=== PATIENT | female | born 1945 | race Caucasian/White ===

== ENCOUNTER 2024-09-20 09:40 | Outpatient (CLI) | payer MEDICARE, SELFPAY ==
--- NOTE | 2024-09-20 10:15 | CRLHL7_ITS ---
For Patients: As a result of the Century Cures Act, medical imaging exams and procedure reports are released immediately into your electronic medical record. You may view this report before your referring provider. If you have questions, please contact your health care provider. INDICATION: Dysphagia TECHNIQUE: Modified barium swallow. Fluoroscopic time 1 minute 39 seconds COMPARISON: None FINDINGS/IMPRESSION: Anatomical structures are normal. Swallowing mechanism appears within normal limits. No episodes of penetration or aspiration. No significant findings. Dictated by Lito Toney MD @ 09/20/2024 11:19:37 AM (Electronically Signed)
== END 2024-09-20 09:41 | disposition home or self-care (01) ==
LOC: RAD 09:41
PROVIDERS: PCP Family Medicine; Visit Provider Family Medicine
DX: R13.10 Dysphagia, unspecified (principal)
CPT/HCPCS: 74230; 92611

== ENCOUNTER 2025-03-12 19:41 | Emergency (ER) | payer MEDICARE, SELFPAY ==
--- OUTSIDE RECORDS SUMMARY | 2025-03-12 19:44 | XMS_ITS | Clinical Summary ---
Author Organization [facility] Address [address] [place] [address] Care Team Providers Care Rn Ortho Name Role Phone Muriel Abel Primary Care Provider [phone] Allergies Active Allergy Reactions Criticality Noted Date Comments Amoxicillin-Pot Clavulanate Rash 12/04/19 25 Medications ASPIRIN 81 MG TAB, DELAYED RELEASE take 1 tablet (81 mg) by oral route once daily 0 12/30/19 08 Active FISH OIL 1,200 MG-144 MG-216 MG CAP one tablet daily 0 04/18/20 08 Active ergocalciferol (VITAMIN D) 400 unit capsule Take 400 Units by mouth once daily. 0 07/11/20 10 Active azelastine 137 mcg/actuation (ASTELIN) nasal sprayIndications: Allergic rhinitis, unspecified seasonality, unspecified trigger Inhale 1 Meeker into affected nostril(s) 2 times daily. 30 mL 6 01/27/20 22 Active albuterol HFA (PRO-AIR; VENTOLIN; PROVENTIL) 90 mcg/actuation inhalerIndication s:STORM (dyspnea on exertion) Inhale 1-2 Puffs by mouth every 4 hours if needed for Shortness Of Breath. 1 Each 3 02/27/20 23 Active inhalational spacing deviceIndications :STORM (dyspnea on exertion) For home use. 1 Each 02/27/20 23 Active fluticasone (50 mcg per actuation) nasal solution (FLONASE)Indicati ons:Rhinitis, unspecified type Inhale 1 Meeker to both nostrils two times daily. 16 g 02/29/20 24 Active mometasone (Asmanex HFA) 100 mcg/actuation HFAAIndications:O bstructive lung disease (HC) INHALE 1 PUFF BY MOUTH TWICE DAILY 13 g 3 12/08/19 25 Active famotidine 20 mg tabletIndications :Gastroesophageal reflux disease, unspecified whether esophagitis present Take 1 Tablet (20 mg) by mouth two times daily. 180 Tablet 1 03/06/20 25 Active hydroCHLOROthiazi de 25 mg tabletIndications :Primary hypertension Take 1 Tablet (25 mg) by mouth once daily. 90 Tablet 3 03/06/20 25 Active hydrocortisone 2.5 % rectal creamIndications: Hemorrhoids, external Apply topically to affected area(s) three times daily. 28 g 03/06/20 25 Active lisinopriL 20 mg tabletIndications :Primary hypertension,Stag e 3b chronic kidney disease (HC) Take 1 Tablet (20 mg) by mouth once daily. 90 Tablet 3 03/06/20 25 Active montelukast 10 mg tabletIndications :Rhinitis, unspecified type,SOB (shortness of breath) Take 1 Tablet (10 mg) by mouth at bedtime. 90 Tablet 3 03/06/20 25 Active atorvastatin 80 mg tabletIndications :Hyperlipidemia, unspecified hyperlipidemia type Take 1 Tablet (80 mg) by mouth at bedtime. 90 Tablet 3 03/09/20 25 Active cyclobenzaprine 10 mg tabletIndications :Hip pain, left,Left leg pain Take 1 Tablet (10 mg) by mouth 3 times daily if needed for Muscle Spasm. 20 Tablet 03/11/20 25 Active predniSONE 20 mg tabletIndications :Hip pain, left,Left leg pain Take 1 Tablet (20 mg) by mouth once daily with a meal for 5 days. 5 Tablet 03/11/20 25 2024 Active diclofenac 75 mg delayed-release tabletIndications :Hip pain, left,Left leg pain Take 1 Tablet (75 mg) by mouth two times daily with meals. 20 Tablet 03/11/20 25 Active hydrocortisone (ANUSOL-HC) 2.5 % rectal creamIndications: Hemorrhoids, external Apply topically to affected area(s) 3 times daily. 28 g 01/10/20 21 2024 Discontinued(R eorder (E-cancel not sent)) famotidine (PEPCID) 20 mg tabletIndications :Gastroesophageal reflux disease, unspecified whether esophagitis present Take 1 Tablet (20 mg) by mouth two times daily. 180 Tablet 3 02/29/20 24 2024 Discontinued atorvastatin (LIPITOR) 40 mg tabletIndications :Hyperlipidemia, unspecified hyperlipidemia type Take 1 Tablet (40 mg) by mouth at bedtime. 90 Tablet 3 02/29/20 24 2024 Discontinued hydroCHLOROthiazi de 25 mg tabletIndications :Primary hypertension Take 1 Tablet (25 mg) by mouth once daily. 90 Tablet 3 02/29/20 24 2024 Discontinued(R eorder (E-cancel not sent)) lisinopriL (PRINIVIL; ZESTRIL) 20 mg tabletIndications :Primary hypertension,Stag e 3b chronic kidney disease (HC) Take 1 Tablet (20 mg) by mouth once daily. (New dose - replaces previous 40mg tab) 90 Tablet 3 02/29/20 24 2024 Discontinued montelukast (SINGULAIR) 10 mg tabletIndications :Rhinitis, unspecified type,SOB (shortness of breath) Take 1 Tablet (10 mg) by mouth at bedtime. 90 Tablet 3 02/29/20 24 2024 Discontinued(R eorder (E-cancel not sent)) lisinopriL 20 mg tabletIndications :Primary hypertension,Stag e 3b chronic kidney disease (HC) Take 1 tablet by mouth once daily 30 Tablet 02/15/20 25 2024 Discontinued(R eorder (E-cancel not sent)) famotidine 20 mg tabletIndications :Gastroesophageal reflux disease, unspecified whether esophagitis present Take 1 tablet by mouth twice daily 180 Tablet 1 02/18/20 25 2024 Discontinued(R eorder (E-cancel not sent)) atorvastatin 40 mg tabletIndications :Hyperlipidemia, unspecified hyperlipidemia type TAKE 1 TABLET BY MOUTH AT BEDTIME 30 Tablet 02/24/20 25 2024 Discontinued(R eorder (E-cancel not sent)) atorvastatin 40 mg tabletIndications :Hyperlipidemia, unspecified hyperlipidemia type Take 1 Tablet (40 mg) by mouth at bedtime. 90 Tablet 3 03/06/20 25 2024 Discontinued(* Medication adjustment) Active Problems Problem Noted Date Diagnosed Date Obstructive lung disease 02/29/2024 Skin cancer 02/29/2024 Overview (02/29/2024): History of skin cancer (unsure type) to face Follows with Dermatology Q4 months Osteopenia of multiple sites 10/07/2017 Overview (02/23/2022): DEXA 2020 Abdominal pain, generalized 01/18/2017 Class 1 obesity due to exces s calories without serious comorbidity with body mass index (BMI) of 31.0 to 31.9 in adult 01/08/2017 Renal mass, right 11/30/2016 Other and unspecified hyperlipidemia 12/30/2007 Unspecified essential hypertension 12/30/2007 healthcare maintenance 12/30/2007 Overview (10/07/2017): Colonoscopy - 2001 in [place] - benign polyp - no record in paper chart Colonoscopy 11/2016 few diverticuli repeat in 10 years Last Mammo 02/15/09 01/04/08 ACR 1 Negative Resolved Problems Problem Noted Date Diagnosed Date Resolved Date Severe obesity (BMI 35.0-39. 9) with comorbidity 02/26/2023 02/29/2024 Depression, recurrent 02/23/20222023 Encounters Date Type Department Care Team Description 03/11/2025 1:35 PM CDT Ancillary Procedure [facility] [address] [place] [address] Arrived 03/11/2025 1:30 PM CDT Ancillary Procedure [facility] [address] [facility] [place] [address] Arrived 03/11/2025 12:55 PM CDT [facility] [address] [facility] [place] [address] Shankar Martines NP Leg Pain/problem (left leg pain for about 2 weeks) 03/11/2025 Travel 03/06/2025 8:05 AM CDT Office Visit [facility] [address] [facility] [place] [address] Muriel Abel DO Medicare ANNUAL (subsequent) Visit (79 Year Old); Knee Pain/problem (Left hip to Knee mainly knee, x1 week ) 03/06/2025 7:40 AM CDT Ancillary Procedure [facility] [address] [place] [address] 03/06/2025 Travel 02/22/2025 Refill [facility] [address] [place] [address] Shaqra, Muriel Rayna, DO Refill Request (Atorvastatin) 02/16/2025 Refill [facility] [address] [place] [address] Shaqra, Muriel Rayna, DO Refill Request (Famotidine) 02/13/2025 Refill [facility] [address] [place] [address] Shaqra, Muriel Rayna, DO Refill Request (Lisinopril) 01/25/2025 2:00 PM CDT Ancillary Procedure [facility] [address] [place] [address] 01/25/2025 Travel from Last 3 Months Immunizations Immunization Administration Dates Next Due COVID-19 vaccine (Effective Measure 30mcg/0.3mL) CHAD MEHTA 12/28/2020 Influenza RIV4 (Age 18+ Year s) PRESERV FREE 08/15/2020 Influenza, High-dose Inactivated 06/19/2024 Influenza, High-dose Quadriv alent Inactivated 08/02/2023,08/17/2022,08/11/2021 Influenza, IIV3 (Age 6-35 mos) 08/14/2011 Influenza, IIV3 (Age >=3 years) 09/01/20 13,08/26/2012,08/14/2011,08/01,12/30/2007 Influenza, IIV4 10/07/2017 Influenza, Inactivated IIV3 (Age 65+ Years) Preserv Free 10/21/2018 Pneumococcal Conj 20-valent (Prevnar 20) 06/19/2024 Pneumococcal Poly,23-Valent (Pneumovax) 09/24/2016,02/15/2009 Pneumococcal conj 13-Valent (Prevnar 13) 09/12/2015 RSV, Recombinant ADJ Reconst ituted (Arexvy 120MCG/0.5mL) 06/19/2024 Td (Age >=7 Years) 11/26/2006 Tdap 12/31/2016,11/26/2006 Zoster (Shingrix-RZV, recombinant) 08/02/2023, Zoster (Zostavax-ZVL, live) 12/30/2007 Family History Medical History Relation Name Comments Arrhythmia Brother 1 Stroke Brother 2 Heart Disease Father in his 70's Stroke Mother Cancer-ovarian Sister Cancer-breast No Family History Relation Name Status Comments Brother 1 Brother 2 Other Father Mother Alive Sister Social History Tobacco Use Types Packs/Day Years Used Date Smoking Tobacco: Never Smokeless Tobacco: Never Tobacco Cessation:Counseling Given: Yes Alcohol Use Standard Drinks/Week Comments Yes 0 (1 standard drink = 0.6 oz pur e alcohol) very seldom PHQ-2 Answer Date Recorded PHQ-2 TOTAL SCORE 0 03/06/2025 Social Connections Answer Date Recorded Do you often feel lonely or isolated from those around you? 0 03/06/2025 Financial Resource Strain Answer Date R ecorded Difficulty of Paying Living Expenses 3 03/06/2025 Difficulty of Paying Living Expenses Not on file 03/06/2025 Food Insecurity Answer Date Recorded Do you worry your food will run out before you are able to buy more? 1 03/06/2025 Transportation Needs Answer Date Record ed Does lack of transportation keep you from medica l appointments? 1 03/06/2025 Does lack of transportation keep you from work, meetings or getting things that you need? 1 03/06/2025 Housing Stability Answer Date Recorded What is your housing situation today? 1 03/06/2025 Utilities Answer Date Recorded Do you have trouble paying f or utilities (for example, heat, electricity, water, phone)? 1 03/06/2025 Comments No Sex and Gender Information Value Date Recorded Sex Assigned at Not on file Legal Sex Female 5:26 AM [employer] Gender Identity Not on file Sexual Orientation Not on file Occupation Industry Job Start Date Job End Date Not on file Not on file Not on file Not on file Obstetrics History Para Term AB IAB SAB Ectopic Multiple Livin g Live Births 3 3 3 0 0 0 0 0 3 Date Outcome GA Total Labor Labor/2nd/3rd Weight Sex Type Anes PTL Rayna A1 A5 Name Clin Term Term Term Last Filed Vital Signs Vital Sign Reading Time Taken Comments Blood Pressure 116/64 03/11/2025 1:00 PM CDT Pulse 77 03/11/2025 1:00 PM CDT Temperature 36.7 C (98.1 F) 03/11/2025 1:00 PM CDT Respiratory Rate 18 03/11/2025 1:00 PM CDT Oxygen Saturation 98% 03/11/2025 1:00 PM CDT Inhaled Oxygen Concentration - - Weight 86 kg (189 lb 11.2 oz) 03/11/2025 1:00 PM CDT Height 161.1 cm (5' 3.43) 03/06/2025 8:08 AM CD T Body Mass Index 33.16 03/06/2025 8:08 AM CDT Plan of Treatment Health Maintenance Due Date Last Done Comments COVID-19 vaccine series () 07/09/2024 08/17/2022, 08/11/2021, 01/18/2021, Additional history exists BMI (ht and wt on same day) for age 18+ 03/06/2026 03/06/2025, 02/29/2024, 02/26/2023, Additional history exists Depression screening for age 12+ 03/06/2026 03/06/2025, 03/01/2024, 02/29/2024, Additional history exists Medicare Wellness for age 65+ 03/07/2026, 02/29/2024, 02/26/2023, Additional history exists Tetanus booster 12/31/2026 12/31/2016, 11/08, 11/26/2006 Tdap Completed 12/31/2016, 11/26/2006 Hepatitis C screening for ag e 18-79 Completed 10/21/2018 DEXA/DXA scan for age 65+ Completed 02/18/2021, 12/2014 Zoster (shingles) series for age 50+ Completed 08/02/2023, 08/11/2021, 12/30/2007 Influenza Vaccine Completed 06/19/2024, , 10/21/2018, Additional history exists Pneumococcal series for age 50+ Completed 06/19/2024, 09/24/2016, 09/12/2015, Additional history exists RSV vaccine for adults or Completed 06/19/2024 Procedures Procedure Name Priority Date/Time Associated Diagnosis Comments XR HIP 1 VIEW W PELVIS LEFT STAT 03/11/2025 1:42 PM CDT Hip pain, left XR TIBIA AND FIBULA 2 VIEWS LEFT STAT 03/11/2025 1:42 PM CDT Left leg pain BASIC METABOLIC PANEL Routine 03/06/2025 8:54 AM CDT Primary hypertension LIPID PANEL W REFLEX MEASURED LDL Routine 03/06/2025 8:54 AM CDT Hyperlipidemia, unspecified hyperlipidemia type XR MAMMO DEYSI BILAT SCREEN Routine 03/06/2025 7:50 AM CDT Screening mammogram for breast cancer MR ABDOMEN RENAL WWO Routine 01/25/2025 2:54 PM CDT Other specified disorders of kidney and ureter XR DXA BONE DENSITY 2 SITES AXIAL Routine 02/18/2021 11:43 AM CDT Other specified disorders of bone density and structure, other site ANTI HCV Routine 10/21/2018 10:34 AM [employer] Need for hepatitis C screening test from Last 3 Months or Most Recently Relevant to Health Maintenance Results * XR HIP 1 VIEW W PELVIS LEFT (03/11/2025 1:42 PM CDT) Anatomical Region Laterality Modality HIPS, HIPL, Pelvis Digital Radio graphy 03/11/2025 1:42 PM CDT Impressions 03/11/2025 1:50 PM CDT Mild osteoarthritis left hip with asymmetric joint space narrowing and marginal spurring. No pelvis or left hip fracture. Moderate osteoarthritis right hip. Degenerative change lower lumbar spine. Narrative 03/11/2025 1:50 PM CDT For Patients: As a result of the Century Cures Act, medical imaging exams and procedure reports are released immediately into your electronic medical record. You may view this report before your referring provider. If you have questions, please contact your health care provider. EXAM: XR HIP 1 VIEW W PELVIS LEFT LOCATION: DATE: 03/11/2025 INDICATION: Left hip pain. COMPARISON: None. Procedure Note Edy Lanza MD - 03/11/2025 For Patients: As a result of the s , medical imagingexams and procedure reports are released immediately into your electronicmedical record. You may view this report before your referring provider.If you have questions, please contact your health care provider. EXAM: XR HIP 1 VIEW W PELVIS LEFT LOCATION: DATE: 03/11/2025 INDICATION: Left hip pain. COMPARISON: None. IMPRESSION: Mild osteoarthritis left hip with asymmetric joint space narrowing andmarginal spurring. No pelvis or left hip fracture. Moderate osteoarthritisright hip. Degenerative change lower lumbar spine. us Miteku Daiana Martines [employer] Final Result * XR TIBIA AND FIBULA 2 VIEWS LEFT (03/11/2025 1:42 PM CDT) Anatomical Region Laterality Modality Tibia Digital Radiogra phy 03/11/2025 1:42 PM CDT Impressions 03/11/2025 1:49 PM CDT Normal tibia and fibula. No fracture, no focal lytic lesion. Narrative 03/11/2025 1:49 PM CDT For Patients: As a result of the s , medical imaging exams and procedure reports are released immediately into your electronic medical record. You may view this report before your referring provider. If you have questions, please contact your health care provider. EXAM: XR TIBIA AND FIBULA 2 VIEWS LEFT LOCATION: DATE: 03/11/2025 INDICATION: Left lower leg pain. COMPARISON: None. Procedure Note Edy Lanza MD - 03/11/2025 For Patients: As a result of the s , medical imagingexams and procedure reports are released immediately into your electronicmedical record. You may view this report before your referring provider.If you have questions, please contact your health care provider. EXAM: XR TIBIA AND FIBULA 2 VIEWS LEFT LOCATION: [place] DATE: 03/11/2025 INDICATION: Left lower leg pain. COMPARISON: None. IMPRESSION: Normal tibia and fibula. No fracture, no focal lytic lesion. us Shankar Martines [employer] Final Result * (ABNORMAL) LIPID PANEL W REFLEX MEASURED LDL (03/06/2025 8:54 AM CDT) CHOLESTEROL, TOTAL 182 <200 mg/dL [facility] HDL CHOLESTEROL 52 > OR = 50 mg/dL [facility] TRIGLYCERIDES 247(H) <150 mg/dL [facility] Comment: If a non-fasting specimen was collected, consider repeat triglyceride testing on a fasting specimen if clinically indicated. Irma et al. J. of Clin. Lipidol. 2015;9:129-169. LDL-CHOLESTEROL 93 mg/dL (calc) [facility] Comment: Reference range: <100 Desirable range <100 mg/dL for primary prevention; <70 mg/dL for patients with CHD or diabetic patients with > or = 2 CHD risk factors. LDL-C is now calculated using the Dell-Ramos calculation, which is a validated novel method providing better accuracy than the Friedewald equation in the estimation of LDL-C. Dell SS et al. SHER. 2013;310(19): 1380-2811 (http://education.Mine.Gov-Savings/faq/FEU958) CHOL/HDLC RATIO 3.5 <5.0 (calc) [facility] NON HDL CHOLESTEROL 130(H) <130 mg/dL (calc) [facility] Comment: For patients with diabetes plus 1 major ASCVD risk factor, treating to a non-HDL-C goal of <100 mg/dL (LDL-C of <70 mg/dL) is considered a therapeutic option. Blood BLOOD SPECIMEN / Unknown 03/06/2025 8:54 AM CDT 03/06/2025 8:54 AM CDT Muriel Abel DO CHEMISTRY Final Result Performing Organization Address City/[facility]/ZIP Co de Phone Number [facility] [address] [place] [address], [place] [phone] [facility] [address] [place] [address] * (ABNORMAL) BASIC METABOLIC PANEL (03/06/2025 8:54 AM CDT) [facility] GLUCOSE 109(H) 65 - 99 mg/dL [facility] Comment: Fasting reference interval For someone without known diabetes, a glucose value between 100 and 125 mg/dL is consistent with prediabetes and should be confirmed with a follow-up test. UREA NITROGEN (BUN) 22 7 - 25 mg/dL [facility] CREATININE 0.92 0.60 - 1.00 mg/dL [facility] EGFR 64 > OR = 60 mL/min/1. 73m2 [facility] BUN/CREATININE RATIO SEE NOTE: 6 - 22 (calc) [facility] Comment: Not Reported: BUN and Creatinine are within reference range. SODIUM 141 135 - 146 mmol/L [facility] POTASSIUM 4.2 3.5 - 5.3 mmol/L [facility] CHLORIDE 101 98 - 110 mmol/L [facility] CARBON DIOXIDE 31 20 - 32 mmol/L [facility] ELECTROLYTE BALANCE 9 7 - 17 mmol/L (calc) [facility] CALCIUM 10.3 8.6 - 10.4 mg/dL [facility] Blood BLOOD SPECIMEN / Unknown 03/06/2025 8:54 AM CDT 03/06/2025 8:54 AM CDT Muriel Rayna Colten DO CHEMISTRY Final Result Performing Organization Address City/[facility]/ZIP Co de Phone Number [facility] [address] [place] [address], [place] [phone] [facility] [address] [place] [address] * XR MAMMO DEYSI BILAT SCREEN (03/06/2025 7:50 AM CDT) Anatomical Region Laterality Modality BREASTS, Breast Left, Breast Right Bilateral Mammography Impressions 03/09/2025 7:40 AM CDT There is no radiographic evidence for malignancy. Recommend annual mammograms. MAMMOGRAM ASSESSMENT: ACR 1 Negative PATIENTS: You will also receive a letter with your examination results in an easy to read format. If you have questions about your results, please contact your referring provider. Narrative 03/09/2025 7:40 AM CDT For Patients: As a result of the Century Cures Act, medical imaging exams and procedure reports are released immediately into your electronic medical record. You may view this report before your referring provider. If you have questions, please contact your health care provider. XR MAMMO DEYSI BILAT SCREEN [[id number]] CLINICAL HISTORY: This is an asymptomatic 79 y.o. patient. INDICATION FOR EXAM: Mammogram Screening. TECHNIQUE: CC and MLO views were obtained. This study was evaluated with the assistance of Computer-Aided Detection. Breast Tomosynthesis was used in interpretation. COMPARISON FILM: Yes 02/29/24 [facility] 02/26/23 [facility] FINDINGS: There are scattered areas of fibroglandular density. There are no dominant masses, suspicious micro calcifications or areas of architectural distortion. Muriel Abel DO MAMMO Final Result * MR ABDOMEN RENAL WWO (01/25/2025 2:54 PM CDT) Anatomical Region Laterality Modality Abdomen, KIDNEY L, KIDNEY R, KIDNEYS Magnetic Resonance 01/26/2025 9:52 AM CDT Impressions 01/26/2025 9:52 AM CDT 1. 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 No evidence of residual or recurrent disease. No adenopathy. 2. 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 Dictated by Sharon Michael MD @ 01/26/2025 9:52:09 AM (Electronically Signed) Narrative 01/26/2025 9:52 AM CDT For Patients: As a result of the Cures Act, medical imaging exams and procedure reports are released immediately into your electronic medical record. You may view this report before your referring provider. If you have questions, please contact your health care provider. INDICATION: History of renal carcinoma post cryoablation in 2016 TECHNIQUE: 1.5 T MRI of the abdomen performed with pre and postcontrast T1 weighted imaging; T2 weighted imaging; diffusion weighted imaging. 3D MRCP imaging was obtained. 19 mL Clariscan IV COMPARISON: MR abdomen 06/04/2022, renal ultrasound 05/16/2024 FINDINGS: Lungs: The lung bases are clear. No pleural or pericardial effusion. Liver: Homogeneous liver parenchyma. No hepatic masses. Similar left hepatic lobe cyst Biliary tree and gallbladder: No intra or extrahepatic biliary dilation. Prior cholecystectomy Spleen: Unremarkable Pancreas: Normal pancreatic parenchyma. No pancreatic masses. No pancreatic duct dilation. Adrenal glands: Unremarkable. Kidneys and ureters: Postprocedural changes of the posterior right upper renal pole without evidence of recurrence. Unchanged tiny AML or lipoma of the left upper renal pole measuring 7 mm (13/47) and left lower pole cyst GI tract: No evidence of obstruction or inflammation. Vasculature: The IVC and aorta are patent. No abdominal aortic aneurysm. Incidental note of circumaortic left renal vein. Lymph nodes: No lymphadenopathy. Abdominal wall: Unremarkable Bones: Degenerative change of the imaged spine. Procedure Note Sharon Michael MD - 01/26/2025 For Patients: As a result of the Cures Act, medical imagingexams and procedure reports are released immediately into your electronicmedical record. You may view this report before your referring provider.If you have questions, please contact your health care provider. INDICATION: History of renal carcinoma post cryoablation in 2016 TECHNIQUE: 1.5 T MRI of the abdomen performed with pre and postcontrast T1 weightedimaging; T2 weighted imaging; diffusion weighted imaging. 3D MRCP imagingwas obtained. 19 mL Clariscan IV COMPARISON: MR abdomen 06/04/2022, renal ultrasound 05/16/2024 FINDINGS: Lungs: The lung bases are clear. No pleural or pericardial effusion. Liver: Homogeneous liver parenchyma. No hepatic masses. Similar lefthepatic lobe cyst Biliary tree and gallbladder: No intra or extrahepatic biliary dilation.Prior cholecystectomy Spleen: Unremarkable Pancreas: Normal pancreatic parenchyma. No pancreatic masses. Nopancreatic duct dilation. Adrenal glands: Unremarkable. Kidneys and ureters: Postprocedural changes of the posterior right upperrenal pole without evidence of recurrence. Unchanged tiny AML or lipoma ofthe left upper renal pole measuring 7 mm (13/47) and left lower pole cyst GI tract: No evidence of obstruction or inflammation. Vasculature: The IVC and aorta are patent. No abdominal aortic aneurysm.Incidental note of circumaortic left renal vein. Lymph nodes: No lymphadenopathy. Abdominal wall: Unremarkable Bones: Degenerative change of the imaged spine. IMPRESSION: 1. Unchanged appearance of the right kidney status post cryoablation of aposterior renal cell carcinoma. No evidence of residual or recurrentdisease. No adenopathy. 2. 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 Dictated by Sharon Michael MD @ 01/26/2025 9:52:09 AM (Electronically Signed) Kenneth Rowland MD MR Final Resu lt * (ABNORMAL) XR DXA BONE DENSITY 2 SITES AXIAL (02/18/2021 11:43 AM CDT) Anatomical Region Laterality Modality Spine, HIPS, HIPL, HIPR Other Impressions 02/18/2021 5:01 PM CDT Osteopenia. RECOMMENDATIONS: The National Osteoporosis Foundation recommends pharmacologic treatment for patients with T-scores of -2.5 or less, patients with prior history of fragility fractures, or patients with 10-year probability of greater than 3% at hips or greater than 20% of suffering major osteoporotic fractures. Recommend continued optimization of calcium and vitamin D intake through dietary means and/or supplementation and regular exercise. Repeat scan recommended in 3-5 years. Adela Starr PA-C [facility] 02/18/2021 Narrative 02/18/2021 5:01 PM CDT XR DXA Bone Mineral Density (BMD) EXAM LOCATION: [address] [address] PATIENT NAME: Vicky Ball DATE OF : 1945 EXAM DATE: 02/18/2021 REQUESTING PROVIDER: Anna Webster MD GENDER AT : female HEIGHT: 5' 3.47 (01/09/2021) WEIGHT: 206 lb 4.8 oz (01/09/2021) MENOPAUSAL STATUS: Postmenopausal RACE/ETHNICITY: White RISK FACTORS: NO RISK FACTORS CURRENT MEDICATION FOR BONE LOSS: NONE INDICATION: FOLLOW UP OF EXISTING OSTEOPENIA COMPARISON DATE(S): 2014 DXA scans are compared to prior studies for a patient only when the two (or more) studies were performed on the same scanner. It is not possible to compare data generated on one scanner to data from another because there are not standards in DXA equipment. This applies even if the two scanners are made by the same clinical nursing coordinator. PROCEDURE: Dual-energy x-ray absorptiometry performed with routine technique. Reporting is completed in the form of a T-score. The T-score represents the standard deviation from peak bone mass based on young healthy adult. A Z-score is used for diagnosis in premenopausal women, and for men under the age of 50. FINDINGS: RESULT LUMBAR SPINE L1 - L4 BMD: 1.127 g/cm2 T-Score: -0.5 Z-Score: 0.2 Comparison to most recent scan in 2015: no change. RESULT FEMORAL NECK Left Total Femoral Neck BMD: 0.795 g/cm2 T-Score: -1.7 Z-Score: -0.5 RESULT TOTAL HIP Bilateral Total Hip BMD: 0.901 g/cm2 T-Score: -0.9 Z-Score: 0.1 Comparison to most recent scan in 2015: Decrease -6.1%. WHO criteria: Normal: T-score at or above -1 SD Osteopenia: T-score between -1.1 and -2.4 SD Osteoporosis: T-score at or below -2.5 SD FRAX RISK CALCULATION (USED FOR OSTEOPENIA ONLY): 10-year probability of major osteoporotic fracture: 10.8%. 10-year probability of hip fracture: 2.1%. us Anna Webster MD DEXA Final Result * ANTI HCV [[id number]] (10/21/2018 10:34 AM SALES REPRESENTATIVES) Pathologist [facility] HEPATITIS C ANTIBODY Non-React precious Non-React precious 10/21/2018 8:09 PM SALES REPRESENTATIVES [facility] Comment:Antibodies to HCV no t detected; does not exclude the possibility of exposure to HCV. Blood BLOOD SPECIMEN / Unknown Venipuncture / Unknown 10/21/2018 10:34 AM SALES REPRESENTATIVES 10/21/2018 10:34 AM SALES REPRESENTATIVES us Adela GARCES SEND OUTS Final R esult [facility] [address] [place] [address], from Last 3 Months or Most Recently Relevant to Health Maintenance Insurance [facility] MEDICARE ADVANTAGE MR Care Teams Rn Ortho Relationship Specialty Start Date End Date Muriel Abel DO [address] [place] [address] PCP - General Family Practice 02/29/24
--- NOTE | 2025-03-12 19:46 | ED.GENADULT ---
HPI - General Adult General Time Seen by Provider: 20:22 Date Seen: 03/12/25 Chief complaint: Extremity Pain/Injury, Lower Stated complaint: Hurt left leg/popping in left leg Time Seen by Provider: 03/12/25 19:45 Source: patient Mode of arrival: ambulatory Limitations: no limitations History of Present Illness HPI narrative: 79-year-old female who comes in today with her left leg pain. Patient started having leg pain about 2 weeks ago after doing some gardening. Was seen yesterday with negative x-rays. Was started on prednisone diclofenac and was feeling little bit better but tonight was standing on the steps, turned and felt a pop in her knee with increased pain. Pain is in the back of the knee, no radiation down the leg, no fall or injury. Related Data Home Medications ?Medication ?Instructions ?Recorded ?Confirmed atorvastatin 40 mg tablet 40 mg PO DAILY 03/24/24 11/14/24 famotidine 20 mg tablet 20 mg PO BID 03/24/24 11/14/24 fluticasone propionate 50 spray intranasal 03/24/24 11/14/24 mcg/actuation nasal spray,suspension hydrochlorothiazide 25 mg tablet 25 mg PO DAILY 03/24/24 11/14/24 lisinopril 20 mg tablet 20 mg PO DAILY 03/24/24 11/14/24 mometasone 100 mcg/actuation HFA inhalation 03/24/24 11/14/24 aerosol inhaler (Asmanex HFA) montelukast 10 mg tablet 10 mg PO DAILY 03/24/24 11/14/24 cyclobenzaprine 10 mg tablet mg PO 03/12/25 diclofenac sodium 75 mg 75 mg PO BID 03/12/25 03/12/25 tablet,delayed release prednisone 20 mg tablet 20 mg PO DAILY 03/12/25 03/12/25 Previous Rx's ?Medication ?Instructions ?Recorded benzonatate 200 mg capsule 200 mg PO BID-TID PRN cough #30 11/14/24 caps Allergies Allergy/AdvReac Type Severity Reaction Status Date / Time amoxicillin (From Augmentin) Allergy Mild Rash Verified 03/12/25 19:51 clavulanic acid (From Allergy Mild Rash Verified 03/12/25 19:51 Augmentin) Exam Narrative: Exam Narrative: General: well nourished , NAD Head: Atraumatic and normocephalic ENT: External ears and external nose are normal Eyes: Conjunctiva clear, pupils are equal reactive, external ocular motions are intact Neck: Full spontaneous range of motion of the neck Lungs: No respiratory distress Musculoskeletal: No tenderness or deformity. Left knee- no joint effusion. No tenderness of the patella, no tenderness of the MCL or LCL. Mild tenderness of the popliteal fossa with no swelling. No calf tenderness or pain with passive movement. Mild pain with axial load and external rotation, mild pain with resisted knee extension. Neurologic: No gross focal neurologic deficits Skin: No rashes Psych: Mood and affect are appropriate Const: Vital Signs, click to edit/add: Vital Signs - 24 hr 03/12/25 19:54 Temperature 99.0 F Pulse Rate [Pulse Oximeter] 72 Respiratory Rate 16 Blood Pressure [Ri ght Upper Arm] 124/67 Pulse Oximetry 96 Oxygen Delivery Me thod Room Air Course Course ED Course: Reviewed x-rays performed yesterday of the hip and lower leg, all which are negative for acute bony abnormality. Reviewed the clinic visit from yesterday as well when patient was complaining of left leg and hip pain which is aching in been going on for couple of weeks, patient was prescribed prednisone, diclofenac, and Flexeril. Patient presents today with left knee pain after turning feeling a pop. Able to bear weight. On exam here, patient has no joint effusion to suggest internal derangement, no MCL or ACL returns. Some tenderness in the popliteal fossa no palpable mass or cyst. No calf tenderness. Given abrupt onset with turning and, in no calf swelling or tenderness, DVT is unlikely. Symptoms are most consistent with soft tissue injury, possibly Myers's cyst. Patient is stable for discharge, continue prednisone as previously prescribed, will give trial of ambulation with a walker for support. I do not think patient is steady enough for as the upper body strength to use crutches. Reevaluation(s) Time of Reevaluation #1: 20:36 Reevaluation #1: Patient stable with ambulation with a walker and is stable for discharge with prescription for walker Vital Signs Vital signs: Initial Vital Signs Temperature 99.0 F 03/12/25 19:54 Temperature Source Temporal Artery Scan 03/12/25 19:54 Pulse Rate 72 03/12/25 19:54 Respiratory Rate 16 03/12/25 19:54 Blood Pressure 124/67 03/12/25 19:54 Blood Pressure Mean 86 03/12/25 19:54 Blood Pressure Position Sitting 03/12/25 19:54 Pulse Oximetry 96 03/12/25 19:54 Oxygen Delivery Method Room Air 03/12/25 19:54 Vital Signs Temperature 99.0 F 03/12/25 19:54 Pulse Rate 72 03/12/25 19:54 Respiratory Rate 16 03/12/25 19:54 Blood Pressure 124/67 03/12/25 19:54 Pulse Oximetry 96 03/12/25 19:54 Oxygen Delivery Method Room Air 03/12/25 19:54 Temperature 99.0 F 03/12/25 19:54 Pulse Rate 72 03/12/25 19:54 Respiratory Rate 16 03/12/25 19:54 Blood Pressure 124/67 03/12/25 19:54 Pulse Oximetry 96 03/12/25 19:54 Oxygen Delivery Method Room Air 03/12/25 19:54 Discharge Plan Discharge Clinical Impression: Left knee sprain Patient Disposition: Home, Self-Care Instructions: Knee Sprain (ED) Additional Instructions: Ice 15-20 minutes at a time every 2-3 hours while awake for 24 hours Activity as tolerated, use walker for comfort Tylenol and diclofenac to help with pain Follow-up with orthopedic clinic in 3-5 days, call [phone] for an appointment. Activity Level: Activity as Tolerated and Use Walker Discharge Diet: Regular Prescriptions: No Action atorvastatin 40 mg tablet 40 mg PO DAILY fluticasone propionate 50 mcg/actuation spray,suspension intranasal famotidine 20 mg tablet 20 mg PO BID lisinopril 20 mg tablet 20 mg PO DAILY hydrochlorothiazide 25 mg tablet 25 mg PO DAILY montelukast 10 mg tablet 10 mg PO DAILY Asmanex HFA 100 mcg/actuation HFA aerosol inhaler inhalation benzonatate 200 mg capsule 200 mg PO BID-TID PRN (Reason: cough) Qty: 30 0RF cyclobenzaprine 10 mg tablet PO prednisone 20 mg tablet 20 mg PO DAILY diclofenac sodium 75 mg tablet,delayed release (DR/EC) 75 mg PO BID Follow Up/Referrals: Muriel Abel DO [Primary Care Provider] - Stand Alone Forms: MyHealth Info Instructions
[2025-03-12 19:54] VITALS: BP 124/67; PULSE 72; RESP 16; TEMP 37.2; O2SAT 96; BMI 33.5
--- OUTSIDE RECORDS SUMMARY | 2025-03-12 20:34 | XMS_ITS | Clinical Summary ---
Author Organization [facility] Address [address] [place] [id number] Care Team Providers Care Inspector [employer] Name Role Phone Muriel Abel Primary Care Provider [phone] Allergies Active Allergy Reactions Criticality Noted Date [...] rhinitis, unspecified seasonality, unspecified trigger Inhale 1 [place] into affected nostril(s) 2 times daily. 30 [...] solution (FLONASE)Indicati ons:Rhinitis, unspecified type Inhale 1 [place] to both nostrils two times daily. 16 [...] 12/30/2007 Overview (10/07/2017): Colonoscopy - 2001 in [place] - benign polyp - no record in paper chart Colonoscopy 11/2016 few diverticuli repeat in 10 years Last Mammo 02/15/09 01/04/08 ACR 1 Negative Resolved Problems Problem Noted Date Diagnosed Date Resolved Date Severe obesity (BMI 35.0-39. 9) with comorbidity 02/26/2023 02/29/2024 Depression, recurrent 02/23/20222023 Encounters Date Type Department Care Team Description 03/11/2025 1:35 PM CDT Ancillary Procedure [facility] [address] [place] [address] Arrived 03/11/2025 1:30 PM CDT Ancillary Procedure [facility] [address] [facility] [place] [address] Arrived 03/11/2025 12:55 PM CDT Office Visit [facility] [address] [facility] [place] [address] Shankar Martines NP Leg Pain/problem (left leg pain for about 2 weeks) 03/11/2025 Travel 03/06/2025 8:05 AM CDT Office Visit [facility] [address] [facility] [place] [address] Muriel Abel DO Medicare ANNUAL (subsequent) Visit (79 Year Old); Knee Pain/problem (Left hip to Knee mainly knee, x1 week ) 03/06/2025 7:40 AM CDT Ancillary Procedure [facility] [address] [place] [address] 03/06/2025 Travel 02/22/2025 Refill [facility] [address] [place] [address] Shaqra, Muriel Rayna, DO Refill Request (Atorvastatin) 02/16/2025 Refill [facility] [address] [place] [address] Shaqra, Muriel Rayna, DO Refill Request (Famotidine) 02/13/2025 Refill [facility] [address] [place] [address] Shaqra, Muriel Rayna, DO Refill Request (Lisinopril) 01/25/2025 2:00 PM CDT Ancillary Procedure [facility] [address] [place] [address] 01/25/2025 Travel from Last 3 Months Immunizations Immunization Administration Dates Next Due COVID-19 vaccine ([employer] 30mcg/0.3mL) CHAD MEHTA 12/28/2020 Influenza RIV4 (Age [...] on file Legal Sex Female 5:26 AM MILITARY PAY CLERK Gender Identity Not on file Sexual Orientation [...] site ANTI HCV Routine 10/21/2018 10:34 AM MILITARY PAY CLERK Need for hepatitis C screening test from [...] lower lumbar spine. us Miteku Daiana Martines MAINTENANCE MECHANIC SUPERVISOR GENERAL IMAGING Final Result * XR TIBIA [...] AND FIBULA 2 VIEWS LEFT LOCATION: [facility] DATE: 03/11/2025 INDICATION: Left lower leg pain. COMPARISON: None. IMPRESSION: Normal tibia and fibula. No fracture, no focal lytic lesion. us Shankar Martines MAINTENANCE MECHANIC SUPERVISOR GENERAL IMAGING Final Result * (ABNORMAL) LIPID [...] LDL-C. Dell SS et al. SHER. 2013;310(19): 3764-5856 (http://education.[employer].inFreeDA/faq/FBY765) CHOL/HDLC RATIO 3.5 <5.0 (calc) [facility] [...] DO CHEMISTRY Final Result Performing Organization Address City/[facility]/ZIP Co de Phone Number [employer] [facility] [address] [place] [address], [place] [phone] [facility] [address] [place] [address] * (ABNORMAL) BASIC METABOLIC PANEL (03/06/2025 8:54 AM CDT) [facility] GLUCOSE 109(H) 65 - 99 mg/dL [facility] Comment: Fasting reference interval For someone without known diabetes, a glucose value between 100 and 125 mg/dL is consistent with prediabetes and should be confirmed with a follow-up test. UREA NITROGEN (BUN) 22 7 - 25 mg/dL [facility] CREATININE 0.92 0.60 - 1.00 [...] DO CHEMISTRY Final Result Performing Organization Address City/[facility]/ZIP Co de Phone Number [employer] [facility] [address] [place] [address], [place] [phone] [facility] [address] [place] [address] * XR MAMMO DEYSI BILAT SCREEN (03/06/2025 [...] care provider. XR MAMMO DEYSI BILAT SCREEN [[id number]] CLINICAL HISTORY: This is an asymptomatic 79 y.o. patient. INDICATION FOR EXAM: Mammogram Screening. TECHNIQUE: CC and MLO views were obtained. This study was evaluated with the assistance of Computer-Aided Detection. Breast Tomosynthesis was used in interpretation. COMPARISON FILM: Yes 02/29/24 [facility] 02/26/23 [facility] FINDINGS: There are scattered areas of fibroglandular [...] recommended in 3-5 years. Adela Starr PA-C [facility] 02/18/2021 Narrative 02/18/2021 5:01 PM CDT XR DXA Bone Mineral Density (BMD) EXAM LOCATION: [address] [address] PATIENT NAME: Vicky Ball DATE OF : [...] two scanners are made by the same tying in machine operator. PROCEDURE: Dual-energy x-ray absorptiometry performed with routine [...] MD DEXA Final Result * ANTI HCV [[id number]] (10/21/2018 10:34 AM MILITARY PAY CLERK) Pathologist [facility] HEPATITIS C ANTIBODY Non-React precious Non-React precious 10/21/2018 8:09 PM MILITARY PAY CLERK [facility] Comment:Antibodies to HCV no t detected; does not exclude the possibility of exposure to HCV. Blood BLOOD SPECIMEN / Unknown Venipuncture / Unknown 10/21/2018 10:34 AM MILITARY PAY CLERK 10/21/2018 10:34 AM MILITARY PAY CLERK us Adela GARCES SEND OUTS Final R esult [facility] [address] [place] [address], from Last 3 Months or Most Recently Relevant to Health Maintenance Insurance [facility] MEDICARE ADVANTAGE MR Care Teams Inspector [employer] Relationship Specialty Start Date End Date Muriel Abel DO [address] [place] [address] PCP - General Family Practice 02/29/24
== END 2025-03-12 20:47 | disposition home or self-care (01) ==
LOC: ED 20:32
PROVIDERS: Emergency Provider Family Medicine; PCP Family Medicine
DX: S83.92XA Sprain of unspecified site of left knee, initial encounter (principal)
CPT/HCPCS: 99283

== ENCOUNTER 2025-07-16 08:04 | Outpatient (CLI) | payer MEDICARE, SELFPAY | END 2025-07-16 08:05 | disposition home or self-care (01) | LOC: NFLDREF 07-19 08:16 | PROVIDERS: PCP Family Medicine; Referring Provider Family Medicine; Visit Provider Physician Assistant Medical | DX: R35.0 Frequency of micturition (principal); N39.0 Urinary tract infection, site not specified | CPT/HCPCS: 87086 ==